=== PATIENT | male | born 1955 | race Caucasian/White ===

== ENCOUNTER 2017-10-25 11:03 | Outpatient (CLI) | payer OTHER ==
[~2017-10-25 11:03] MED LIST: LEVAQUIN500 MG PO; METOPROLOL SUCC50 MG; ORPH100T PO
== END 2017-10-25 11:23 | disposition home or self-care (01) ==
LOC: RAD 11:03
DX: M25.561 Pain in right knee (principal); M25.562 Pain in left knee; M25.552 Pain in left hip; M25.551 Pain in right hip

== ENCOUNTER 2019-09-03 13:59 | Outpatient (CLI) | payer OTHER ==
[~2019-09-03 13:59] MED LIST changes: +DEPO-MEDRO40 MG/1 ML IM
== END 2019-09-03 14:08 | disposition home or self-care (01) ==
LOC: RAD 13:59
DX: M54.5 Low back pain (principal); M25.551 Pain in right hip; M25.552 Pain in left hip

== ENCOUNTER 2020-09-23 12:12 | Outpatient (CLI) | payer OTHER | END 2020-09-23 12:21 | disposition home or self-care (01) | LOC: RAD 12:12 | PROVIDERS: ATTEND Orthopaedic Surgery | DX: M25.551 Pain in right hip (principal); M25.552 Pain in left hip ==

== ENCOUNTER 2020-11-21 12:54 | Outpatient (CLI) | payer OTHER | END 2020-11-21 13:44 | disposition home or self-care (01) | LOC: RAD 12:54 | PROVIDERS: ATTEND Orthopaedic Surgery | DX: R07.89 Other chest pain (principal) ==

== ENCOUNTER 2020-11-25 07:00 | Inpatient (IN) | payer OTHER ==
[~2020-11-25] VITALS: Ht 177.8 cm; Wt 127.0 kg
[2020-11-25] MEDS ORDERED: IRBESARTAN-HCT1 EAC1 PO (08:57)
[2020-11-25] MEDS ORDERED: DAFLONEX-XL 11300 MG PO (08:58)
[2020-11-25] MEDS ORDERED: ATORVASTATIN CA10 MG PO (08:58)
[2020-11-25] MEDS ORDERED: NORVASC2.5 M1 PO (08:58)
[2020-11-25] MEDS ORDERED: SOLARAZE100 GM TOP (08:59)
[2020-11-25] MEDS ORDERED: PHENDIMETRAZIN105 M1 PO (09:00)
[2020-11-25] MEDS ORDERED: WELLBUTRIN XL150 M1 PO (09:00)
[2020-11-25] MEDS ORDERED: ADIPEX-P37.5 M1 PO (09:01)
[2020-11-25] MEDS ORDERED: METFORMIN HCL500 M3 PO (09:01)
[2020-12-01] MEDS ORDERED: ATORVASTATIN CA40 MG (08:12)
== END 2020-12-03 22:16 | DRG 470 ==
LOC: O/R 12-01 05:55 → SURG 12-01 05:55 → SURH 12-01 07:00 → SURG 12-01 13:32
PROVIDERS: ADMIT Orthopaedic Surgery; ATTEND Orthopaedic Surgery
PROC: 0SR90JZ Replacement of Right Hip Joint with Synthetic Substitute, Open Approach (ICD-10-PCS; principal; 2020-12-01 07:00)
DX: M16.11 Unilateral primary osteoarthritis, right hip (principal); D62 Acute posthemorrhagic anemia; Q65.89 Other specified congenital deformities of hip; I10 Essential (primary) hypertension

== ENCOUNTER 2021-06-02 11:06 | Outpatient (CLI) | payer OTHER ==
[~2021-06-02 11:06] MED LIST changes: +ADIPEX-P37.5 M1 PO; +ATORVASTATIN CA10 MG PO; +ATORVASTATIN CA40 MG; +DAFLONEX-XL 11300 MG PO; +IRBESARTAN-HCT1 EAC1 PO; +METFORMIN HCL500 M3 PO; +NORVASC2.5 M1 PO; +PHENDIMETRAZIN105 M1 PO; +SOLARAZE100 GM TOP; +WELLBUTRIN XL150 M1 PO
== END 2021-06-02 11:07 | disposition home or self-care (01) ==
LOC: NUCLEAR 11:06
PROVIDERS: ATTEND Orthopaedic Surgery
DX: M25.461 Effusion, right knee (principal); M25.462 Effusion, left knee

== ENCOUNTER 2022-02-15 12:07 | Outpatient (CLI) | payer OTHER | END 2022-02-15 12:17 | disposition home or self-care (01) | LOC: PPH VACUNA 12:07 | PROVIDERS: ATTEND Emergency Medicine Pediatric Emergency Medicine | DX: Z23 Encounter for immunization (principal) ==

== ENCOUNTER 2022-06-23 14:05 | Outpatient (CLI) | payer OTHER | END 2022-06-23 14:15 | disposition home or self-care (01) | LOC: PPH VACUNA 14:05 | PROVIDERS: ATTEND Emergency Medicine Pediatric Emergency Medicine | DX: Z23 Encounter for immunization (principal) ==